=== PATIENT | male | born 1945 | race African-American/Black ===

== ENCOUNTER 2017-12-31 09:16 | Inpatient (IN) | payer OTHER, BC ==
[2017-12-31] VITALS (12 sets, daily range): BP systolic 110–147; BP diastolic 60–73
[~2017-12-31] VITALS: Ht 177.8 cm; Wt 52.0 kg
[~2017-12-31 09:16] MED LIST: ADVAIR 250/501 DISK IH; ATIVAN0.5 MG PO; AVENTYL,PAMELOR25 MG PO; BUMETANIDE1 MG PO; BUMEX1 MG PO; BUPROBAN150 MG PO; CARDIZEM CD180 MG PO; CARDIZEM90 MG PO; CARDURA2 M1 PO; CHOLESTYRAMINE L4 GM PO; CHOLESTYRAMINE P4 GM PO; CLONIDINE HCL0.1 MG PO; CYANOCOBALAM1000 MCG PO; DOXAZOSIN MESYLA2 MG PO; LEVOFLOXACIN500 MG PO; LIBRAX CAPSULE1 EACH PO; LOPRESSOR25 MG PO; LUMIGAN 0.50 DROP/2. BOTH EYES; Levaquin PO; METOPROLOL TART50 MG PO; MULTIPLE VITAM1 EACH PO; NORTRIPTYLINE H75 MG PO; PANTOPRAZOLE SO40 MG PO; PRILOSEC20 MG PO; PROTONIX40 MG PO; QUESTRAN PACKET4 GM PO; QUETIAPINE FUMA50 MG PO; RANITIDINE HCL150 MG PO; REMERON45 MG PO; TOPROL XL50 MG PO; TUDORZA PRESS400 MCG IH; VENLAFAXINE HC100 MG PO; vit b12
[2017-12-31 10:20] LABS: BASOPHIL (%) 0.6 % (0-1); EOSINOPHIL (%) 5.3 % (0-5); EOSINOPHIL COUNT 0.2 K/uL (0-0.3); HEMATOCRIT 26.5 % (38.0-50.0); HEMOGLOBIN 8.7 G/DL (12.5-16.6); IMMATURE GRANULOCYTE (%) 0.3 % (0.0-0.7); LYMPHOCYTE (%) 26.8 % (15-42); MCH 31.3 PG (29.0-34.0); MCHC 32.8 G/DL (30.0-36.0); MCV 95.3 FL (86-99); MONOCYTE (%) 6.1 % (3-12); MONOCYTE COUNT 0.2 K/uL (0-0.8); NEUTROPHIL (%) 60.9 % (45-76); NEUTROPHIL COUNT 2.2 K/uL (1.8-6.4); PLATELET COUNT 195 K/uL (156-360); RBC DIS.WIDTH-CV 14.8 % (11.8-14.6); RBC DIS.WIDTH-SD 50.4 % (39-53); RED BLOOD COUNT 2.78 M/uL (4.00-5.50); WHITE BLOOD COUNT 3.6 K/uL (4.1-10.2)
[2017-12-31 10:29] LABS: CHLORIDE 106 mEq/L (99-109); POTASSIUM 3.9 mEq/L (3.7-5.4); SODIUM 143 mEq/L (136-147)
[2017-12-31 10:31] LABS: GLUCOSE 61 mg/dL (70-99)
[2017-12-31 10:35] LABS: CREATININE 0.8 mg/dL (0.6-1.3); GFR ESTIMATE (CALCULATED) > 59 mL/min/ (58.99-99999)
[2017-12-31 10:36] LABS: UREA NITROGEN (BUN) 14 mg/dL (9-23)
[2017-12-31] MEDS ORDERED: CYANOCOBAL1000 MCG/2 IM (11:21)
[2017-12-31] MEDS ORDERED: AMARYL2 MG PO (11:23)
[2017-12-31] MEDS ORDERED: TYLENOL ARTHRI650 MG PO (11:23)
[2017-12-31] MEDS ORDERED: IRON325 M1 PO (11:24)
[2017-12-31] MEDS ORDERED: PROBIOTIC ACID1 EAC3 PO (11:26)
[2017-12-31] MEDS ORDERED: ZITHROMAX250 MG PO (11:27)
[2018-01-01] VITALS (7 sets, daily range): BP systolic 118–148; BP diastolic 67–79
[2018-01-01 06:26] LABS: MCH 29.4 PG (29.0-34.0); PLATELET COUNT 184 K/uL (156-360); RBC DIS.WIDTH-CV 16.2 % (11.8-14.6); RBC DIS.WIDTH-SD 52.3 % (39-53); WHITE BLOOD COUNT 4.3 K/uL (4.1-10.2)
[2018-01-01 06:29] LABS: HEMOGLOBIN 12.2 G/DL (12.5-16.6); MCV 89.2 FL (86-99); RED BLOOD COUNT 4.15 M/uL (4.00-5.50)
[2018-01-01 06:33] LABS: ALBUMIN 3.1 G/DL (3.2-4.8); ALKALINE PHOSPHATASE 68 IU/L (3-129); ALT (GPT) 12 IU/L (3-49); AST (GOT) 20 IU/L (2-34); CHLORIDE 107 MEQ/L (99-109); CREATININE 0.9 MG/DL (0.6-1.3); GFR ESTIMATE (CALCULATED) > 59 mL/min/ (58.99-99999); POTASSIUM 4.2 MEQ/L (3.7-5.4); SODIUM 141 MEQ/L (136-147); TOTAL BILIRUBIN 0.9 MG/DL (0.0-1.0); TOTAL PROTEIN 5.3 G/DL (6.4-8.3); UREA NITROGEN (BUN) 15 mg/dL (9-23)
[2018-01-01 06:34] LABS: GLUCOSE 84 mg/dL (70-99)
[2018-01-02 05:36] LABS: HEMATOCRIT 35.7 % (38.0-50.0); HEMOGLOBIN 11.6 G/DL (12.5-16.6); MCH 29.4 PG (29.0-34.0); MCHC 32.5 G/DL (30.0-36.0); MCV 90.4 FL (86-99); PLATELET COUNT 179 K/uL (156-360); RBC DIS.WIDTH-CV 16.1 % (11.8-14.6); RBC DIS.WIDTH-SD 52.8 % (39-53); RED BLOOD COUNT 3.95 M/uL (4.00-5.50); WHITE BLOOD COUNT 4.9 K/uL (4.1-10.2)
[2018-01-02 07:19] VITALS: BP 138/77
[2018-01-02 15:47] VITALS: BP 120/60
[2018-01-02 21:46] VITALS: BP 137/69
[2018-01-02 22:48] VITALS: BP 144/73
[2018-01-03 07:11] LABS: BASOPHIL (%) 0.4 % (0-1); EOSINOPHIL (%) 3.8 % (0-5); EOSINOPHIL COUNT 0.2 K/uL (0-0.3); HEMOGLOBIN 11.6 G/DL (12.5-16.6); IMMATURE GRANULOCYTE (%) 0.2 % (0.0-0.7); LYMPHOCYTE (%) 16.1 % (15-42); LYMPHOCYTE COUNT 0.8 K/uL (1.0-2.8); MCH 29.9 PG (29.0-34.0); MCHC 33.1 G/DL (30.0-36.0); MCV 90.2 FL (86-99); MONOCYTE (%) 7.8 % (3-12); MONOCYTE COUNT 0.4 K/uL (0-0.8); NEUTROPHIL (%) 71.7 % (45-76); NEUTROPHIL COUNT 3.6 K/uL (1.8-6.4); PLATELET COUNT 183 K/uL (156-360); RBC DIS.WIDTH-CV 15.6 % (11.8-14.6); RBC DIS.WIDTH-SD 50.8 % (39-53); RED BLOOD COUNT 3.88 M/uL (4.00-5.50)
[2018-01-03 07:30] LABS: CHLORIDE 108 MEQ/L (99-109); CREATININE 0.7 MG/DL (0.6-1.3); GFR ESTIMATE (CALCULATED) > 59 mL/min/ (58.99-99999); GLUCOSE 92 mg/dL (70-99); SODIUM 142 MEQ/L (136-147); UREA NITROGEN (BUN) 13 mg/dL (9-23)
[2018-01-03 07:34] VITALS: BP 145/73
[2018-01-03 15:27] VITALS: BP 150/79
[2018-01-03] MEDS ORDERED: PANTOPRAZOLE SO40 MG PO (16:48)
== END 2018-01-03 18:43 | disposition home or self-care (01) | DRG 378 ==
LOC: EME 09:16 → 5EAST 12:16 → EDOF 12:16 → ENRESERV 12:30 → 5EAST 14:30
PROVIDERS: Emergency Medicine; Internal Medicine; Internal Medicine Gastroenterology
DX: K92.2 Gastrointestinal hemorrhage, unspecified (principal); D50.0 Iron deficiency anemia secondary to blood loss (chronic); E11.43 Type 2 diabetes mellitus with diabetic autonomic (poly)neuropathy; K31.84 Gastroparesis; I10 Essential (primary) hypertension; K21.9 Gastro-esophageal reflux disease without esophagitis; D72.819 Decreased white blood cell count, unspecified; E53.8 Deficiency of other specified B group vitamins; F32.9 Major depressive disorder, single episode, unspecified; F41.9 Anxiety disorder, unspecified; N40.0 Benign prostatic hyperplasia without lower urinary tract symptoms; E55.9 Vitamin D deficiency, unspecified; J44.9 Chronic obstructive pulmonary disease, unspecified; K58.0 Irritable bowel syndrome with diarrhea; G47.30 Sleep apnea, unspecified; R64 Cachexia; Z90.49 Acquired absence of other specified parts of digestive tract; Z90.3 Acquired absence of stomach [part of]; Z68.1 Body mass index [BMI] 19.9 or less, adult
CPT/HCPCS: 71045; 80048; 80053; 85025; 85027; 86850; 86900; 86901; 86920; 88305; 88342 TC; 93005; 94640; 94640 76; 99281; 99285; C9113; J7030; P9016